=== PATIENT | male | born 1980 | race Caucasian/White ===

== ENCOUNTER 2018-01-26 19:26 | Emergency (ER) | payer OTHER ==
--- NOTE | 2018-01-26 20:05 | EDM.PDOC ---
ED HPI GENERAL MEDICAL PROBLEM - General Chief Complaint: General Stated Complaint: PAIN/SWELLING HANDS FEET Time Seen by Provider: 01/26/18 19:52 Source of Information: Reports: Patient History Limitations: Reports: No Limitations - History of Present Illness INITIAL COMMENTS - FREE TEXT/NARRATIVE: HISTORY AND PHYSICAL: History of present illness: Patient is a 37-year-old male who presents to the emergency room today with complaints of a rash and redness to bilateral hands and upper thighs. Concerned that the arches in his feet are swollen. 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 He denies any fever, chills, chest pain or shortness of breath. Denies any abdominal pain, nausea, vomiting or diarrhea. Review of systems: As per history of present illness and below otherwise all systems reviewed and negative. Past medical history: As per history of present illness and as reviewed below otherwise noncontributory. Surgical history: As per history of present illness and as reviewed below otherwise noncontributory. Social history: No reported history of drug or alcohol abuse. Family history: As per history of present illness and as reviewed below otherwise noncontributory. Physical exam: General: Developed and well-nourished 37-year-old male. Alert and oriented. Nontoxic appearing and in no acute distress. HEENT: Atraumatic, normocephalic, pupils equal and reactive bilaterally, negative for conjunctival pallor or scleral icterus, mucous membranes moist, throat clear, neck supple, nontender, trachea midline. No drooling or trismus noted. No meningeal signs Lungs: Clear to auscultation, breath sounds equal bilaterally, chest nontender. Heart: S1S2, regular rate and rhythm without overt murmur Abdomen: Soft, nondistended, nontender. Negative for masses or hepatosplenomegaly. Negative for costovertebral tenderness. Pelvis: Stable nontender. Genitourinary: Deferred. Rectal: Deferred. Skin: Intact, warm, dry. Redness noted to bilateral hands does not appear to be rash like. Consistent with a dermatitis. Did not notice any redness/rashes to bilateral thigh. No lesions or rashes noted. Extremities: Atraumatic, no soft tissue swelling noted, strong pedal pulses bilaterally. He is negative for cords or calf pain. Neurovascular unremarkable. Neuro: Awake, alert, oriented. Cranial nerves II through XII unremarkable. Cerebellum unremarkable. Motor and sensory unremarkable throughout. Exam nonfocal. Notes: Will treat with Medrol Dosepak. Patient states that he uses [facility] and does not have money to [facility] the [facility]. Will give 1 dose of Prednisone while here. He states he does have some Benadryl at home. I encouraged him to take this routinely. Supportive care measures were reviewed. Diagnostics: [] Therapeutics: Prednisone Impression: Contact Dermatitis Plan: 1. Please obtain Benadryl and take routinely over the next 24-48 hours. 2. Medrol Dosepak as directed. 3. Please wear compression socks as needed for your lower extremity swelling. 4. Follow up in [place] in the next 1-2 days. Return to the ED as needed and as discussed. Definitive disposition and diagnosis as appropriate pending reevaluation and review of above. Duration: Day(s): - Related Data Allergies Allergy/AdvReac Type Severity Reaction Status Date / Time ibuprofen [From Motrin] Allergy Rash Verified 01/26/18 19:43 tramadol HCl [From Ultram] Allergy Vomiting Verified 01/26/18 19:43 Home Meds: Home Meds . [No Known Home Meds] 11/24/15 [History] . [No Known Home Meds] 04/03/16 [History] Past Medical History HEENT History: Reports: Impaired Vision Cardiovascular History: Reports: None Respiratory History: Reports: None Gastrointestinal History: Reports: None Genitourinary History: Reports: None Musculoskeletal History: Reports: None Neurological History: Reports: None Psychiatric History: Reports: None Endocrine/Metabolic History: Reports: None Hematologic History: Reports: None Immunologic History: Reports: None Oncologic (Cancer) History: Reports: None Dermatologic History: Reports: None - Infectious Disease History Infectious Disease History: Reports: Chicken Pox - Past Surgical History Head Surgeries/Procedures: Reports: None Musculoskeletal Surgical History: Reports: Arthroscopic Knee, Other (See Below) Social & Family History - Family History Family Medical History: Noncontributory - Tobacco Use Smoking Status *Q: Current Every Day Smoker Years of Tobacco use: 13 Packs/Tins Daily: 1 Second Hand Smoke Exposure: Yes - Recreational Drug Use Recreational Drug Use: No Drug Use in Last 12 Months: No ED ROS GENERAL - Review of Systems Review Of Systems: ROS reveals no pertinent complaints other than HPI. ED EXAM, GENERAL - Physical Exam Exam: See Below (See dictation) Course - Vital Signs Last Recorded V/S: Last Vital Signs Temp 97.8 F 01/26/18 19:44 Pulse 96 01/26/18 19:44 Resp 20 01/26/18 19:44 BP 146/78 H 01/26/18 19:44 Pulse Ox Departure - Departure Time of Disposition: 20:05 Disposition: Home, Self-Care 01 Clinical Impression: Contact dermatitis Qualifiers: Contact dermatitis type: irritant Contact dermatitis trigger: unspecified trigger Qualified Code(s): L24.9 - Irritant contact dermatitis, unspecified cause - Discharge Information Instructions: Contact Dermatitis, [id number] Referrals: PCP,None [Primary Care Provider] - Additional Instructions: The following information is given to patients seen in the emergency department who are being discharged to home. This information is to outline your options for follow-up care. We provide all patients seen in our emergency department with a follow-up referral. The need for follow-up, as well as the timing and circumstances, are variable depending upon the specifics of your emergency department visit. If you don't have a primary care physician on staff, we will provide you with a referral. We always advise you to contact your personal physician following an emergency department visit to inform them of the circumstance of the visit and for follow-up with them and/or the need for any referrals to a consulting specialist. The emergency department will also refer you to a specialist when appropriate. This referral assures that you have the opportunity for follow-up care with a specialist. All of these measure are taken in an effort to provide you with optimal care, which includes your follow-up. Under all circumstances we always encourage you to contact your private physician who remains a resource for coordinating your care. When calling for follow-up care, please make the office aware that this follow-up is from your recent emergency room visit. If for any reason you are refused follow-up, please contact the [facility] Emergency Department at and asked to speak to the emergency department charge nurse. [facility] [address] [place] [id number] 1. Please obtain Benadryl and take routinely over the next 24-48 hours. 2. Medrol Dosepak as directed. 3. Please wear compression socks as needed for your lower extremity swelling. 4. Follow up in [place] in the next 1-2 days. Return to the ED as needed and as discussed.
[2018-01-26] MEDS ORDERED: predniSONE 20 MG Tab PO ONE (20:06)
[2018-01-26 20:22] VITALS: BP 137/72
== END 2018-01-26 20:27 | disposition home or self-care (01) ==
LOC: MW.ED 19:26
DX: L24.9 Irritant contact dermatitis, unspecified cause (principal); F17.210 Nicotine dependence, cigarettes, uncomplicated; Z88.6 Allergy status to analgesic agent; Z88.5 Allergy status to narcotic agent
CPT/HCPCS: 99283; A9270

== ENCOUNTER 2018-03-26 06:14 | Day surgery (SDC) | payer OTHER ==
[~2018-03-26 06:14] MED LIST: Lactated Ringers 1,000 ML IV SCH
--- NOTE | 2018-03-26 06:49 | PCM.PREANE ---
Preanesthetic Assessment - Anesthesia/Transfusion/Family Hx Anesthesia History: Prior Anesthesia Without Reaction Transfusion History: No Prior Transfusion(s) - Review of Systems General: No Symptoms Pulmonary: No Symptoms Cardiovascular: No Symptoms Gastrointestinal: No Symptoms Neurological: No Symptoms Other: Reports: None - Physical Assessment Height: 5 ft 3 in Weight: 65.771 kg ASA Class: 2 Mental Status: Alert & Oriented x3 Airway Class: Mallampati = 1 Dentition: Reports: Dentures, Broken Tooth/Teeth, Missing Tooth/Teeth Thyro-Mental Finger Breadths: 3 Mouth Opening Finger Breadths: 4 ROM/Head Extension: Full Lungs: Clear to Auscultation, Normal Respiratory Effort Cardiovascular: Regular Rate, Regular Rhythm - Allergies Allergies/Adverse Reactions: Allergies Allergy/AdvReac Type Severity Reaction Status Date / Time ibuprofen [From Motrin] Allergy Rash Verified 03/24/18 13:44 shellfish derived Allergy Rash Verified 03/24/18 13:44 tramadol HCl [From Ultram] Allergy Vomiting Verified 03/24/18 13:44 - Acknowledgements Anesthesia Type Planned: General Anesthesia Pt an Appropriate Candidate for the Planned Anesthesia: Yes Alternatives and Risks of Anesthesia Discussed w Pt/Guardian: Yes Pt/Guardian Understands and Agrees with Anesthesia Plan: Yes PreAnesthesia Questionnaire HEENT History: Reports: Other (See Below) Other HEENT History: wears glasses, has upper denture but doesn't wear it Cardiovascular History: Reports: None Respiratory History: Reports: None Gastrointestinal History: Reports: None Genitourinary History: Reports: None Musculoskeletal History: Reports: Back Pain, Chronic Neurological History: Reports: None Psychiatric History: Reports: None Endocrine/Metabolic History: Reports: None Hematologic History: Reports: None Immunologic History: Reports: None Oncologic (Cancer) History: Reports: None Dermatologic History: Reports: None - Infectious Disease History Infectious Disease History: Reports: Chicken Pox - Past Surgical History Musculoskeletal Surgical History: Reports: Arthroscopic Knee Other Musculoskeletal Surgeries/Procedures:: arthroscopy x2 and arthrotomy on left knee - SUBSTANCE USE Smoking Status *Q: Current Every Day Smoker Tobacco Use Within Last Twelve Months: Cigarettes Recreational Drug Use History: No - HOME MEDS Home Medications: Home Meds Cyclobenzaprine HCl 10 mg PO TID PRN 03/24/18 [History] Hydrocodone/Acetaminophen [Hydrocodon-Acetaminophen 5-325] 1 tab PO Q6H PRN 08/31 [History] - CURRENT (IN HOUSE) MEDS Current Meds: Current Medications Hydrocodone Bitart/Acetaminophen ([place] 325-5 Mg) 1 - 2 tab PO Q4H PRN PRN Reason: Pain Cefazolin Sodium/Dextrose 1 gm (/ Premix) 50 mls @ 100 mls/hr IV ONCALL [facility] Lactated Ringer's (Ringers, Lactated) 1,000 mls @ 100 mls/hr IV ASDIRECTED [facility] Last Admin: 03/26/18 06:44 Dose: 100 mls/hr
[2018-03-26] MEDS ORDERED: ceFAZolin 1 GM Vial ONE (07:00)
[2018-03-26] MEDS ORDERED: Sodium Chloride 0.9% 20 ML ONE (07:01)
[2018-03-26] MEDS ORDERED: Propofol 200 MG/20 ML SDV ONE (07:04)
[2018-03-26] MEDS ORDERED: fentaNYL 250 MCG/5 ML SDV ONE (07:04)
[2018-03-26] MEDS ORDERED: Midazolam 1 MG/ML 2 ML SDV ONE (07:05)
[2018-03-26] MEDS ORDERED: Dexamethasone 4 MG/ML 5 ML MDV ONE (07:06)
[2018-03-26] MEDS ORDERED: Ondansetron 4 MG/2 ML SDV ONE (07:06)
[2018-03-26] MEDS ORDERED: Lidocaine 1% 20 ML MDV ONE (07:49)
[2018-03-26] MEDS ORDERED: ceFAZolin 1 GM in Premix Bag 1 BAG IV SCH (08:00)
[2018-03-26] MEDS ORDERED: Acetaminophen/HYDROcodone 325-5 MG Tab PO PRN (08:00)
--- NOTE | 2018-03-26 09:26 | PCM.OPNOTE ---
- General Post-Op/Procedure Note Date of Surgery/Procedure: 03/26/18 Operative Procedure(s): Right knee arthroscopy with PLM/PMM and excision of loose bodies x 3 Post-Op Diagnosis: R knee nail/patella syndrome, loose bodies R knee, R knee med /lat meniscus tears Anesthesia Technique: General ET Tube Primary Surgeon: Jalyn Parry Anesthesia Provider: Brii Gamble E[place]allas in mLs: 5 Condition: Good Free Text/Narrative:: tt=51 min #
[2018-03-26] MEDS: fentaNYL 100 MCG/2 ML SDV IVPUSH PRN ×4 (09:35→09:54)
--- NOTE | 2018-03-26 09:58 | PCM.POSTAN ---
POST ANESTHESIA ASSESSMENT - MENTAL STATUS Mental Status: Alert, Oriented - RESPIRATORY Respiratory Status: Respiratory Rate WNL, Airway Patent, O2 Saturation Stable - CARDIOVASCULAR CV Status: Pulse Rate WNL, Blood Pressure Stable - GASTROINTESTINAL GI Status: No Symptoms - POST OP HYDRATION Hydration Status: Adequate & Stable
[2018-03-26 11:12] VITALS: BP 158/92
--- NOTE | 2018-03-26 11:52 | PCM48HPAN ---
Post Anesthesia Note - EVALUATION WITHIN 48HRS OF ANESTHETIC Vital Signs in Normal Range: Yes Patient Participated in Evaluation: Yes Respiratory Function Stable: Yes Airway Patent: Yes Cardiovascular Function Stable: Yes Hydration Status Stable: Yes Pain Control Satisfactory: Yes Nausea and Vomiting Control Satisfactory: Yes Mental Status Recovered: Yes Resp Rate: 16
--- NOTE | 2018-03-26 13:40 | OR ---
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 3. Loose bodies, right knee. 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 3. Loose bodies, right knee. 4. Right knee medial and lateral meniscus tear. PROCEDURES: Right knee arthroscopy with: 1. Partial medial and lateral meniscectomies. 2. Excision of loose bodies x3 (24 mm x 19 mm x 8 mm, 19 mm x 10 mm x 6 mm, and 7 mm x 6 mm x 5 mm). ER PHYSICIAN: Brii Gamble PA-C. ANESTHESIA: General. ESTIMATED BLOOD LOSS: 5 mL. TOURNIQUET TIME: 51 minutes. COMPLICATIONS: None. DVT PROPHYLAXIS: Not indicated. IMPLANTS USED: None. BRIEF HISTORY: Giorgio is a 37-year-old male with history of nail-patella syndrome. He has had multiple procedures on his left knee. He has developed increasing pain in his right knee. X-rays did show a hypoplastic lateral femoral condyle along with hypoplastic patella. Multiple loose bodies were also evident. Due to his lack of response to conservative treatment, I did recommend surgical intervention. The risks and goals of procedure were discussed with the patient and were documented preoperatively. He agreed to proceed. DESCRIPTION OF PROCEDURE: The patient was properly identified and brought to the operating room. He was transferred from the OR cart and placed on the operating table in supine position. General anesthesia was administered. After adequate anesthesia was obtained, a well-padded tourniquet was applied to the right lower extremity. The right lower extremity was then prepped in standard fashion using ChloraPrep solution. It was then sterilely draped. A time-out was performed to ensure correct site and procedure. Preoperative antibiotics were given. The surgical site had been marked preoperatively. An Esmarch was used to exsanguinate the right lower extremity and the tourniquet was inflated to 250 mmHg. A lateral portal arthrotomy was established. Blunt trocar and cannula were introduced into the suprapatellar pouch. Camera, inflow, and outflow were assembled. The patella was quite small and was able to be palpated with limited visualization. He did have an abundance of soft tissue and mild synovitis throughout the knee. A medial portal was then established and a 4.5 mm shaver was introduced. A portion of the soft tissue and synovium were resected to allow better visualization of the medial and lateral femoral condyle. His lateral femoral condyle was quite prominent. The trochlear groove was deep and did have abundant soft tissue. This was cleared of majority of the soft tissue. The medial femoral condyle did show evidence of intact articular cartilage. I then extended down the lateral gutter. A portion of the lateral meniscus appeared to be extruded. I extended down the medial gutter. A free-floating piece of extruded medial meniscus was also noted. Using a combination of biters and shaver, a portion of the medial meniscus was resected. The posterior horn appeared to be intact and this was probed. The remainder of the meniscus appeared intact; however, the anterior horn was completely devoid of meniscus. He had abundant soft tissue in the anterior aspect of the knee and this was also debrided. Visualization of the ACL and PCL was quite difficult. Again, soft tissue was overlying this area, which was resected with a shaver. The ACL and PCL were visualized and probed and appeared to be intact. There was extensive soft tissue in the anterior aspect of the lateral aspect of the knee, which did not allow visualization of the joint line. The camera was switched to the medial portal and a shaver was introduced to resect the portion of the tissue. As the tissue along the anterior aspect of the knee was resected, three large loose bodies were discovered. Sizes are noted above. A spinal needle was used to secure the loose body and the lateral portal was elongated to allow delivery of the loose bodies. A Moreno was then placed and three loose bodies were removed without difficulty. I was then able to enter the lateral compartment. He had degenerative fraying along with radial tear of the posterior horn of the lateral meniscus. This was resected with biters and shaver. Meniscus was again probed and the remainder was found to be stable. He had extensive degenerative changes along the hypoplastic portion of the lateral femoral condyle. A chondroplasty was performed. He had extensive grade 3 degenerative changes along the weightbearing portion of the lateral femoral condyle. The lateral tibial plateau showed grade 2 chondromalacia only. The knee was again inspected for any further loose bodies. None were discovered. Instruments were then removed from the knee. The portal sites were closed with 3-0 nylon. 1% Lidocaine was injected along the portal tracts. Xeroform gauze was placed over the wound and a bulky dressing was applied. The tourniquet was then deflated. He was awakened from his anesthetic and transferred back to the operating room cart. He was brought to recovery room in stable condition. All needle and sponge counts were correct. RADHA ARMAS /[id number]
== END 2018-03-26 11:05 | disposition home or self-care (01) ==
LOC: EDSEX → MW.SDS 06:14 → MERGE 08:00 → MW.SDS 11:05
PROVIDERS: ATTEND Orthopaedic Surgery
DX: M23.211 Derangement of anterior horn of medial meniscus due to old tear or injury, right knee (principal); M23.251 Derangement of posterior horn of lateral meniscus due to old tear or injury, right knee; M23.41 Loose body in knee, right knee; M65.861 Other synovitis and tenosynovitis, right lower leg; M94.261 Chondromalacia, right knee; F17.210 Nicotine dependence, cigarettes, uncomplicated; Q87.2 Congenital malformation syndromes predominantly involving limbs; M17.11 Unilateral primary osteoarthritis, right knee; Z79.899 Other long term (current) drug therapy; Z88.6 Allergy status to analgesic agent; Z88.5 Allergy status to narcotic agent; Z91.013 Allergy to seafood
CPT/HCPCS: 29880; A9270; J0690; J1100; J2250; J2405; J3010; J7120; 01400; 88304; 88311; J2704